=== PATIENT | female | born 1975 | race Caucasian/White ===

== ENCOUNTER → 2016-11-25 | Outpatient (CLI) | payer BC ==
--- NOTE | 2016-11-25 16:20 | US ---
EXAMINATION TYPE: US pelvis complete transvag DATE OF EXAM: 11/25/2016 3:18 PM COMPARISON: NONE CLINICAL HISTORY: N94.6 Dysmenorrhea. HISTORY OF BREAST CANCER TECHNIQUE: Transvaginal (TV) and Transabdominal (TA) pelvic ultrasound Date of LMP: 11/25/2016 EXAM MEASUREMENTS: Uterus: 9.9 X 5.8 X 6.6 cm Endometrial Stripe: 0.3 cm Right Ovary: 3.5 X 1.4 X 1.4 cm Left Ovary: 2.6 X 1.6 X 1.7 cm TECHNOLOGIST IMPRESSION: 1.6 x 1.2 x 0.9 cm anterior fibroid , small nabothian cyst 0.3 x 0.4 x 0.2 cm 1. Uterus: 1.6 x 1.2 x 0.9 cm anterior fibroid , small nabothian cyst 0.3 x 0.4 x 0.2 cm 2. Endometrium: wnl 3. Right Ovary: small follicular cyst 4. Left Ovary: small follicular cyst 5. Bilateral Adnexa: wnl 6. Posterior cul-de-sac: wnl Tiny nabothian cysts are seen in the cervix on transvaginal evaluation. There is heterogeneous isoech oic to slightly hypoechoic lesion anteriorly in the uterus could reflect small fibroid. Endometrium d oes not appear suspiciously thickened on images saved. No free fluid is seen in pelvis. Both ovaries are grossly unremarkable. IMPRESSION: Possible small 1.6 cm intrauterine fibroid otherwise unremarkable study.
== END | disposition home or self-care (01) ==
LOC: RADUSWWP 14:54
PROVIDERS: ATTEND Obstetrics & Gynecology
DX: N94.6 Dysmenorrhea, unspecified (principal)
CPT/HCPCS: 76830; 76856

== ENCOUNTER → 2017-12-16 | Outpatient (CLI) | payer BC ==
--- NOTE | 2017-12-19 13:22 | MM ---
Reason for exam: screening (asymptomatic). Last mammogram was performed 1 year and 6 months ago. History: Patient has history of breast cancer at age 35. Family history of breast cancer in maternal grandmother at age 50. Lumpectomy of the right breast, 2010. Reconstructions of both breasts. Reduction of the left breast. Radiation therapy. Physical Findings: A clinical breast exam by your physician is recommended on an annual basis and results should be correlated with mammographic findings. MG Screening Mammo w CAD Bilateral CC, MLO, and XCCL view(s) were taken. Prior study comparison: June 24, 2016, mammogram, performed at [facility]. June 19, 2015, mammogram, performed at [facility]. The breast tissue is heterogeneously dense. This may lower the sensitivity of mammography. There is a new 1.3cm focal asymmetry in the left upper outer quadrant at posterior depth. Post therapy changes on the right breast. ASSESSMENT: Incomplete: need additional imaging evaluation, BI-RAD 0 RECOMMENDATION: Special view mammogram of the left breast. If lesion persists on supplemental views, image directed ultrasound is recommended. [facility] will attempt to contact patient to return for supplemental views and ultrasound if indicated.
== END | disposition home or self-care (01) ==
LOC: RADMAMWWP 16:52
PROVIDERS: ATTEND Obstetrics & Gynecology
DX: Z12.31 Encounter for screening mammogram for malignant neoplasm of breast (principal); Z85.3 Personal history of malignant neoplasm of breast
CPT/HCPCS: 77067

== ENCOUNTER → 2017-12-27 | Outpatient (CLI) | payer BC ==
--- NOTE | 2017-12-28 08:13 | USB ---
Reason for exam: additional evaluation requested from abnormal screening. History: Patient has history of breast cancer at age 35. Family history of breast cancer in maternal grandmother at age 50. Lumpectomy of the right breast, 2010. Reconstructions of both breasts. Reduction of the left breast. Radiation therapy. Physical Findings: Nurse did not find any significant physical abnormalities on exam. US Breast Workup Limited LT Left breast ultrasound demonstrates a 0.4 x 0.3 x 0.2cm oval, cystic lesion at 12 o'clock. These results were verbally communicated with the patient and result sheet given to the patient on 12/27/17. ASSESSMENT: Benign, BI-RAD 2 RECOMMENDATION: Return to routine screening mammogram schedule for both breasts.
== END | disposition home or self-care (01) ==
LOC: RADMAMWWP 15:00
PROVIDERS: ATTEND Obstetrics & Gynecology
DX: R92.8 Other abnormal and inconclusive findings on diagnostic imaging of breast (principal)

== ENCOUNTER → 2018-10-16 | Outpatient (CLI) | payer BC ==
--- NOTE | 2018-10-17 08:19 | US ---
EXAMINATION TYPE: US pelvic complete DATE OF EXAM: 10/16/2018 COMPARISON: US 11/25/2016 CLINICAL HISTORY: R10.2 Pelvic pain. Right side pelvic pain during cycle TECHNIQUE: . Transabdominal sonographic images of the pelvis were acquired. Date of LMP: 10/12/2018 EXAM MEASUREMENTS: Uterus: 11.5 x 4.9 x 5.4 cm Endometrial Stripe: 0.6 cm Right Ovary: 2.4 x 1.7 x 1.6 cm Left Ovary: 2.5 x 2.6 x 1.6 cm 1. Uterus: Anteverted Hypoechoic area visualized measuring 1.6 x 1.1 x 1.3 cm, probable fibroid. 2. Endometrium: wnl 3. Right Ovary: wnl 4. Left Ovary: wnl 5. Bilateral Adnexa: wnl 6. Posterior cul-de-sac: wnl Stable anterior slightly hypoechoic round to oval lesion felt to reflect small subserosal fibroid. IMPRESSION: Transabdominal ultrasound shows stable small anterior 1.3 cm subserosal fibroid. No new s uspicious finding seen to account for patient's symptoms of right-sided pain.
== END | disposition home or self-care (01) ==
LOC: RADUSWWP 16:16
PROVIDERS: ATTEND Obstetrics & Gynecology
DX: D25.2 Subserosal leiomyoma of uterus (principal)
CPT/HCPCS: 76856

== ENCOUNTER → 2019-01-12 | Outpatient (CLI) | payer BC ==
--- NOTE | 2019-01-15 12:03 | MM ---
Reason for exam: screening (asymptomatic). Last mammogram was performed 1 year and 1 month ago. History: Patient has history of breast cancer at age 35. Family history of breast cancer in maternal grandmother at age 50. Lumpectomy of the right breast, 2010. Reconstructions of both breasts. Reduction of the left breast. Radiation therapy. Physical Findings: A clinical breast exam by your physician is recommended on an annual basis and results should be correlated with mammographic findings. MG Screening Mammo w CAD Bilateral CC and MLO view(s) were taken. XCCL view(s) were taken of the right breast. Prior study comparison: December 16, 2017, bilateral MG screening mammo w CAD. June 24, 2016, mammogram, performed at [facility]. The breast tissue is heterogeneously dense. This may lower the sensitivity of mammography. Finding #1: There are clips and architectural distortion in the outer quadrant, posterior position of the right breast consistent with known lumpectomy changes. Finding #2: There are typically benign round calcifications in the right breast. ASSESSMENT: Benign, BI-RAD 2 RECOMMENDATION: Routine screening mammogram of both breasts in 1 year.
== END | disposition home or self-care (01) ==
LOC: RADMAMWWP 08:03
PROVIDERS: ATTEND Obstetrics & Gynecology
DX: Z12.31 Encounter for screening mammogram for malignant neoplasm of breast (principal); Z85.3 Personal history of malignant neoplasm of breast
CPT/HCPCS: 77067

== ENCOUNTER → 2020-05-27 | Outpatient (CLI) | payer BC ==
--- NOTE | 2020-05-28 13:37 | MM ---
Reason for exam: screening (asymptomatic). Last mammogram was performed 1 year and 4 months ago. History: Patient has history of breast cancer at age 35. Family history of breast cancer in maternal grandmother at age 50. Lumpectomy of the right breast, 2010. Reconstructions of both breasts. Reduction of the left breast. Radiation therapy. Physical Findings: A clinical breast exam by your physician is recommended on an annual basis and results should be correlated with mammographic findings. MG 3D Screening Mammo W/Cad Bilateral CC and MLO view(s) were taken. Prior study comparison: January 12, 2019, bilateral MG screening mammo w CAD. December 16, 2017, bilateral MG screening mammo w CAD. The breast tissue is heterogeneously dense. This may lower the sensitivity of mammography. Post biopsy changes right upper outer quadrant. No significant changes when compared with prior studies. ASSESSMENT: Benign, BI-RAD 2 RECOMMENDATION: Routine screening mammogram of both breasts in 1 year.
== END | disposition home or self-care (01) ==
LOC: RADMAMWWP 16:30
PROVIDERS: ATTEND Obstetrics & Gynecology
DX: Z12.31 Encounter for screening mammogram for malignant neoplasm of breast (principal)
CPT/HCPCS: 77063; 77067

== ENCOUNTER → 2021-09-10 | Outpatient (CLI) | payer BC ==
--- NOTE | 2021-09-14 10:37 | MM ---
Reason for exam: screening (asymptomatic). Last mammogram was performed 1 year and 3 months ago. History: Patient has history of breast cancer at age 35. Family history of breast cancer in maternal grandmother at age 50. Lumpectomy of the right breast, 2010. Reconstructions of both breasts. Reduction of the left breast. Radiation therapy. Physical Findings: A clinical breast exam by your physician is recommended on an annual basis and results should be correlated with mammographic findings. MG 3D Screening Mammo W/Cad Bilateral CC and MLO view(s) were taken. Prior study comparison: May 27, 2020, bilateral MG 3d screening mammo w/cad. January 12, 2019, bilateral MG screening mammo w CAD. The breast tissue is heterogeneously dense. This may lower the sensitivity of mammography. Finding: There are coarse heterogeneous, linear arranged calcifications in the upper outer quadrant, posterior position of the right breast. Post surgical changes right upper outer quadrant. ASSESSMENT: Incomplete: need additional imaging evaluation, BI-RAD 0 RECOMMENDATION: Special view mammogram of the right breast. [facility] will attempt to contact patient to return for supplemental views.
== END | disposition home or self-care (01) ==
LOC: RADMAMWWP 14:08
PROVIDERS: ATTEND Obstetrics & Gynecology
DX: Z12.31 Encounter for screening mammogram for malignant neoplasm of breast (principal); Z80.3 Family history of malignant neoplasm of breast
CPT/HCPCS: 77063; 77067

== ENCOUNTER → 2021-09-16 | Outpatient (CLI) | payer BC ==
--- NOTE | 2021-09-16 11:05 | MM ---
Reason for exam: additional evaluation requested from abnormal screening. Last mammogram was performed less than 1 month ago. History: Patient has history of breast cancer at age 35. Family history of breast cancer in maternal grandmother at age 50. Lumpectomy of the right breast, 2010. Reconstructions of both breasts. Reduction of the left breast. Radiation therapy. Physical Findings: Nurse did not find any significant physical abnormalities on exam. MG 3D Work Up W/Cad RT CC with magnification, LM with magnification, and LM view(s) were taken of the right breast. Prior study comparison: September 10, 2021, bilateral MG 3d screening mammo w/cad. May 27, 2020, bilateral MG 3d screening mammo w/cad. There are indeterminate calcifications in the right breast. Post biopsy changes. These results were verbally communicated with the patient and result sheet given to the patient on 09/16/21. ASSESSMENT: Suspicious, BI-RAD 4 RECOMMENDATION: Stereotactic core biopsy of the right breast. Called Dr. Mcwilliams's office with mammographic findings and has scheduled an appointment for the patient for 11/04/21 at 4:[address] Gómez. Biopsy scheduled for 10/19/21 at 8 o'clock. PRELIMINARY REPORT CALLED AND FAXED TO DR. GÓMEZ ON 09/16/21.
== END | disposition home or self-care (01) ==
LOC: RADMAMWWP 08:32
PROVIDERS: ATTEND Obstetrics & Gynecology
DX: R92.1 Mammographic calcification found on diagnostic imaging of breast (principal); Z80.3 Family history of malignant neoplasm of breast; Z78.0 Asymptomatic menopausal state
CPT/HCPCS: 77061; 77065

== ENCOUNTER → 2021-10-19 | Day surgery (SDC) | payer BC ==
[2021-10-19 07:22] VITALS: RESP 16; TEMP 98.6
[2021-10-19 09:13] VITALS: BP 112/77; PULSE 75
--- NOTE | 2021-10-19 17:22 | MM ---
EXAMINATION TYPE: MG stereo VAD BX RT DATE OF EXAM: 10/19/2021 COMPARISON: 01/12/2019, 09/16/2021, 09/10/2021 CLINICAL HISTORY: Abnormal mammogram TECHNIQUE: Stereotactic guided core biopsy of right breast. FINDINGS: The procedure of stereotactic guided core biopsy was explained to the patient. Benefits, alternatives, and risks were discussed. An informed consent was then obtained. The shortness pathway for biopsy was chosen. Shortness pathway was lateral approach. The procedure was performed by radiology. Targeting was provided by radiology. A vacuum assisted biopsy gun was used to obtain 6 core samples. The patient tolerated the procedure well without any immediate complication. The patient was kept in the radiology department for short stay after the procedure and then discharged home in stable condition. Specimen: Targeted calcifications are identified in specimen mammogram. Post biopsy mammogram shows the clip to appear in satisfactory position relative to the targeted calcifications of concern on the preprocedure images. IMPRESSION: 1. Successful stereotactic core biopsy right breast calcifications. Recommendations: 1. Recommendations are pending pathology results. Pathology Results: Benign RIGHT BREAST, STEREOTACTIC NEEDLE CORE BIOPSY: Scar/fibrosis with calcifications and background fibrocystic changes. Recommendation Follow up mammogram of the right breast in 6 months. GUADALUPE
== END ==
LOC: RADMAMWWP 07:09
PROVIDERS: ATTEND Surgery
DX: R92.8 Other abnormal and inconclusive findings on diagnostic imaging of breast (principal); N60.31 Fibrosclerosis of right breast; R92.1 Mammographic calcification found on diagnostic imaging of breast; Z88.0 Allergy status to penicillin
CPT/HCPCS: 88305; 19081; J2001

== ENCOUNTER → 2022-09-08 | Outpatient (CLI) | payer OTHER ==
--- NOTE | 2022-09-08 09:12 | MM ---
Reason for Exam: Follow-up at short interval from prior study. Last screening mammogram was performed 12 month(s) ago. Patient History: Menarche at age 13. First Full-Term at age 28. Breast cancer, right, age 35. Previous chest radiation therapy at age 35. 2010, Lumpectomy on the Right side. Reduction on the Left side. 10/19/2021, Benign Core Biopsy on the right side. Radiation Therapy. Maternal grandmother had breast cancer, age 50. Last menstrual period: 08/27/2022 Prior Study Comparison: 12/17/2010 Bilateral Screening Mammogram, [facility]. 12/21/2010 Bilateral Diagnostic Mammogram, [facility]. 12/21/2010 Left Diagnostic Ultrasound, [facility]. 02/15/2011 Right Diagnostic Mammogram, [facility]. 06/19/2015 Screening Mammogram, [facility]. 06/24/2016 Screening Mammogram, [facility]. 12/16/2017 Bilateral Screening Mammogram, [facility]. 12/27/2017 Left Diagnostic Ultrasound, [facility]. 01/12/2019 Bilateral Screening Mammogram, [facility]. 05/27/2020 Bilateral Screening Mammogram, [facility]. 09/10/2021 Bilateral Screening Mammogram, [facility]. 09/16/2021 Right Diagnostic Mammogram, [facility]. Tissue Density: The breast tissue is heterogeneously dense. This may lower the sensitivity of mammography. Findings: Analyzed By CAD. Stable appearance of right breast postprocedural/treatment changes including right breast surgical clips and biopsy clip. No evidence of new suspicious mass dislocation or distortion in either breast. Overall Assessment: Benign, BI-RAD 2 Management: Screening Mammogram of both breasts in 1 year. A clinical breast exam by your physician is recommended on an annual basis and results should be correlated with mammographic findings. This exam should not preclude additional follow-up of suspicious palpable abnormalities. Results were given to the patient verbally at the time of exam. Electronically signed and approved by: Dale Ennis DO
== END | disposition home or self-care (01) ==
LOC: RADMAMWWP 08:15
PROVIDERS: ATTEND Surgery
DX: C50.911 Malignant neoplasm of unspecified site of right female breast (principal); R92.8 Other abnormal and inconclusive findings on diagnostic imaging of breast; Z80.3 Family history of malignant neoplasm of breast
CPT/HCPCS: 77062; 77066

== ENCOUNTER → 2023-10-17 | Outpatient (CLI) | payer OTHER ==
--- NOTE | 2023-10-18 10:12 | MM ---
Reason for Exam: Screening (asymptomatic). Last mammogram was performed 1 year(s) and 1 month(s) ago. Patient History: Menarche at age 13. First Full-Term at age 28. Premenopausal. Breast cancer, right, age 35. Previous chest radiation therapy at age 35. 2010, Lumpectomy on the Right side. Reduction on the Left side. 10/19/2021, Benign Core Biopsy on the right side. Radiation Therapy. Maternal grandmother had breast cancer, age 50. Last menstrual period: 10/02/2023 Prior Study Comparison: 09/10/2021 Bilateral Screening Mammogram, [facility]. 09/16/2021 Right Diagnostic Mammogram, [facility]. 09/08/2022 Bilateral MG 3D diag mammo w/cad FACUNDO, [facility]. Tissue Density: The breast tissue is heterogeneously dense. This may lower the sensitivity of mammography. Findings: Analyzed By CAD. Post treatment changes right breast with surgical clips. There is no suspicious group of microcalcifications or new suspicious mass. Overall Assessment: Benign, BI-RAD 2 Management: Screening Mammogram of both breasts in [address] [facility] will attempt to contact patient to return for supplemental views and ultrasound if indicated. Patient should continue monthly self-breast exams. A clinical breast exam by your physician is recommended on an annual basis. This exam should not preclude additional follow-up of suspicious palpable abnormalities. Note on Dora scores and lifetime risk: 1. A Dora score greater than 3% is considered moderate risk. If this is the case, consider specialist referral to assess eligibility for a risk reducing agent. 2. If overall lifetime risk for the development of breast cancer is 20% or higher, the patient may qualify for future screening with alternating mammogram and breast MRI. Electronically signed and approved by: Dale Ennis DO
== END | disposition home or self-care (01) ==
LOC: RADMAMWWP 15:46
PROVIDERS: ATTEND Obstetrics & Gynecology
DX: Z12.31 Encounter for screening mammogram for malignant neoplasm of breast (principal); Z80.3 Family history of malignant neoplasm of breast; Z85.3 Personal history of malignant neoplasm of breast
CPT/HCPCS: 77063; 77067

== ENCOUNTER 2023-11-24 09:25 | Emergency (ER) | payer OTHER ==
[2023-11-24 09:33] VITALS: TEMP 98.3
[2023-11-24] MEDS: LIDOCAINE 4% PATCH TOPICAL ONE (10:11)
[2023-11-24] MEDS: PANTOPRAZOLE 40 MG/10 ML VIAL IVP STA (10:11)
[2023-11-24] MEDS: SODIUM CHLORIDE 0.9% 1,000 ML IV STA (10:11)
[2023-11-24 10:26] LABS: Basophils # (A) 0.1 k/uL (0-0.2); Basophils % (A) 1 %; Eosinophils # (A) 0.1 k/uL (0-0.7); Eosinophils % (A) 2 %; HCT 40.1 % (34.0-46.0); HGB 13.4 gm/dL (11.4-16.0); Lymphocytes # (A) 1.5 k/uL (1.0-4.8); Lymphocytes % (A) 16 %; MCHC 33.4 g/dL (31.0-37.0); MCV 92.8 fL (80.0-100.0); Mean Platelet Volume 7.6; Monocytes # (A) 0.5 k/uL (0-1.0); Monocytes % (A) 6 %; Neutrophils # (A) 6.6 k/uL (1.3-7.7); Neutrophils % (A) 74 %; Platelet Count 328 k/uL (150-450); RBC 4.32 m/uL (3.80-5.40); RDW 13.3 % (11.5-15.5); WBC 8.9 k/uL (3.8-10.6)
[2023-11-24 10:34] LABS: Partial Thromboplastin Time 28.4 sec (22.0-30.0)
[2023-11-24 10:46] LABS: HCG,Qualitative Serum Not Detected
[2023-11-24 10:48] LABS: Appearance,Urine Cloudy (Clear); Bacteria,Urine Rare /hpf; Bilirubin,Urine Negative (Negative); Blood,Urine Large (Negative); Budding Yeast,Urine Moderate /hpf; Color,Urine Yellow; Glucose,Urine (UA) Negative (Negative); Ketones,Urine Negative (Negative); Leukocyte Esterase,Urine Large (Negative); Mucus,Urine Occasional /hpf; Nitrite,Urine Negative (Negative); PH, Urine 6.5 (5.0-8.0); Protein,Urine 1+ (Negative); RBC,Urine >182 /hpf (0-5); Squamous Epithelial Cell,Urine 1 /hpf (0-4); Urobilinogen,Urine <2.0 mg/dL (<2.0); WBC,Urine 172 /hpf (0-5)
[2023-11-24 11:03] LABS: ALT 18 U/L (4-34); AST 28 U/L (14-36); African American GFR (CKD) >90 (>60 ml/min/1.73 sqM); Albumin 4.1 g/dL (3.5-5.0); Alkaline Phosphatase 31 U/L (38-126); Amylase 81 U/L (30-110); Anion Gap 10 mmol/L; Blood Urea Nitrogen 17 mg/dL (7-17); Calcium 9.2 mg/dL (8.4-10.2); Carbon Dioxide 23 mmol/L (22-30); Chloride 107 mmol/L (98-107); Glucose 70 mg/dL (74-99); Lipase 102 U/L (23-300); Non-African American GFR(CKD) 79 (>60 ml/min/1.73 sqM); Potassium 4.2 mmol/L (3.5-5.1); Sodium 140 mmol/L (137-145); Total Bilirubin 0.5 mg/dL (0.2-1.3); Total Protein 6.9 g/dL (6.3-8.2)
--- NOTE | 2023-11-24 11:13 | XR ---
EXAMINATION TYPE: XR chest 1V portable DATE OF EXAM: 11/24/2023 COMPARISON: NONE HISTORY: Pain TECHNIQUE: Single frontal view of the chest is obtained. FINDINGS: There is no focal air space opacity, pleural effusion, or pneumothorax seen. The cardiac silhouette size is within normal limits. The osseous structures are intact. IMPRESSION: No acute process.
--- NOTE | 2023-11-24 11:40 | CT ---
CTA CHEST EXAMINATION TYPE: CT angio thor/abd pel aorta DATE OF EXAM: 11/24/2023 INDICATION: recent DVT, low back pain, urinary frequency CT DLP: 1929.1 mGycm, Automated exposure control for dose reduction was used. CONTRAST: Patient injected with 100 mL of Isovue 370. COMPARISON: None TECHNIQUE: CT of the chest and abdomen is performed on a spiral scan at 2 mm thick sections. Study i s performed with intravenous contrast timed for evaluation for thoracic and abdominal aorta.. This w ill limit additional portions of the evaluation. 3-D MIP images reconstructed by the technologist kem estrada reviewed on the computer in the coronal and sagittal planes. FINDINGS: No persistent filling defects are evident to suggest an acute pulmonary embolism. There is a three-vessel arch. No obvious filling defects to suggest acute pulmonary embolism is evide nt. The ascending thoracic aorta aortic arch and descending thoracic aorta appear unremarkable withou t dissection or dilatation. Celiac axis and superior mesenteric arteries are normal. The renal artery origins appear normal. Aortic bifurcation is unremarkable. Internal and external iliac vessels are p atent. Common femoral arteries are patent. Profunda femoris and superficial femoral arteries are em nt. No mediastinal or hilar adenopathy enlarged by CT criteria is evident. The ascending aorta diameter at the level of the main pulmonary artery is 3.4 cm. The main pulmonary artery diameter at the bifurcation is 3.0 cm. Lung windows are clear. CT ABDOMEN: Liver: Normal Spleen: Normal Pancreas: Normal Adrenal glands: The adrenal glands are normal. Gallbladder: Surgically absent Kidneys: No masses are evident. No hydronephrosis is present. No cysts are present. No renal stone s are on the precontrast images. Aorta: Normal. No dissection is evident. Inferior vena cava: Normal. CT PELVIS: Loops of bowel within the abdomen and pelvis are normal. The study is without oral contrast limit ing bowel evaluation. Appendix: Normal as visualized. Urinary bladder: Some mild diffuse urinary bladder wall thickening may be present. Consider cystitis within the differential Genitourinary structures: Uterus is bulky. Adnexa appear within normal limits. Osseous structures: No suspicious lytic or sclerotic lesions. IMPRESSION: 1. No suspicious abnormality account for back pain or flank pain. 2. No dissection or aneurysm of the thoracic or abdominal aorta. 3. No suspicious renal or ureteral stones 4. Mild diffuse wall thickening through the urinary bladder. Consider cystitis. 5. Bulky uterus. This could be further evaluated with ultrasound.
--- NOTE | 2023-11-24 11:52 | ED ---
General Adult HPI - General Chief complaint: Back Pain/Injury Stated complaint: Back pain, DVT Time Seen by Provider: 11/24/23 09:33 Source: patient, RN notes reviewed, old records reviewed Mode of arrival: ambulatory Limitations: no limitations - History of Present Illness Initial comments: Patient is a 48-year-old female presents emergency department complaining of leg pain, back pain. States that has been ongoing for over a week. Has a history of back strains. However patient is concerned because she was also recently started on a blood thinning medication Xarelto for DVT in the lower extremity. Has no acute complaints at this time in terms of the leg however is having some right flank pain as well as had some pain between her shoulder blades in the back. The shoulder blade pain has resolved for a few days however patient has been having the flank pain as well. Presents over concern for her complaints. Only other acute complaint is increased urinary frequency. Presents for further evaluation. - Related Data Home Medications Medication Instructions Recorded Confirmed Ascorbic Acid [Vitamin C chew] 500 mg PO DAILY 10/09/21 10/19/21 Cholecalciferol (Vitamin D3) 12.5 mcg PO DAILY 10/09/21 10/19/21 [Vitamin D3 (500 Iu/5 ML)] Levothyroxine Sodium [Synthroid] 50 mcg PO DAILY 10/09/21 10/19/21 Loratadine [Claritin] 10 mg PO DAILY 10/09/21 10/19/21 Mv,Calcium,Min/Iron/Folic/Vitk 1 each PO DAILY 10/09/21 10/19/21 [One-A-Day Women's Complete Tab] Mv-Min/Vit C/Glut/Lysine/Hb124 1 tablet PO DAILY 10/09/21 10/19/21 [Airborne Effervescent Tablet] Topiramate [Topamax] 100 mg PO DAILY 10/09/21 10/19/21 Zinc Gluconate [Zinc] 50 mg PO DAILY 10/09/21 10/19/21 Previous Rx's Medication Instructions Recorded Sulfamethox-Tmp 800-160Mg [Bactrim 1 tab PO Q12HR 7 Days #14 tab 11/24/23 DS 800-160 mg] Allergies Allergy/AdvReac Type Severity Reaction Status Date / Time Penicillins Allergy Unknown Verified 11/24/23 09:31 Review of Systems ROS Statement: Those systems with pertinent positive or pertinent negative responses have been documented in the HPI. Review of Systems: CONST: Denies fever EYES: Denies blurry vision ENT: Denies nasal congestion C/V: Denies Chest pain RESP: Denies shortness of breath GI: Denies abdominal pain : Denies dysuria SKIN: Denies rash. MSK: Endorses back pain, flank pain NEURO: Denies headache ROS Other: All systems not noted in ROS Statement are negative. Past Medical History Past Medical History: Cancer, Thyroid Disorder Additional Past Medical History / Comment(s): Right breast cancer 2010. DVT History of Any Multi-Drug Resistant Organisms: None Reported Past Surgical History: Breast Surgery, Cholecystectomy Additional Past Surgical History / Comment(s): Right breasst lumpectomy with reconstruction/ radiation 2010 Past Anesthesia/Blood Transfusion Reactions: Previous Problems w/ Anesthesia Additional Past Anesthesia/Blood Transfusion Reaction / Comment(s): pt states "hyperventilated" after cholecystectomy Past Psychological History: No Psychological Hx Reported Smoking Status: Former smoker Past Alcohol Use History: Occasional Past Drug Use History: None Reported General Exam - General Exam Comments Initial Comments: General: Appears in no acute distress. HEAD: Normal with no signs of head trauma. EYES: PERRLA, EOMI, conjunctiva normal, no discharge. ENT: Hearing grossly intact, normal oropharynx. RESPIRATORY: Clear breath sounds bilaterally. No wheezes, rales, or rhonchi. C/V: Regular rate and rhythm. S1 and S2 auscultated, no edema, peripheral pulses 2+ and intact throughout ABD: Abd is soft, nontender, nondistended EXT: Tenderness to palpation in the right lower back with radiation around the flank and somewhat in the suprapubic region. No midline C, T, L-spine tenderness to palpation. SKIN: No rashes or lesions observed on exposed skin. NEURO: Alert and oriented x 4. Cranial nerves II-XII intact. No focal sensory or strength deficits. Limitations: no limitations Course Vital Signs 11/24/23 11/24/23 11/24/23 09:29 10:16 11:24 Temperature 98.3 F Pulse Rate 111 H 100 77 Respiratory 18 20 16 Rate Blood Pressure 124/83 110/60 114/80 O2 Sat by Pulse 100 98 99 Oximetry 11/24/23 12:07 Temperature Pulse Rate 68 Respiratory 16 Rate Blood Pressure 130/80 O2 Sat by Pulse 98 Oximetry Medical Decision Making - Medical Decision Making Was pt. sent in by a medical professional or institution (NAINA Liu, CODING AND REIMBURSEMENT SPECIALIST, urgent care, hospital, or longterm...) When possible be specific @ -No Did you speak to anyone other than the patient for history (EMS, parent, family, police, friend...)? What history was obtained from this source @ -No Did you review nursing and triage notes (agree or disagree)? Why? @ -I reviewed and agree with nursing and triage notes Were old charts reviewed (outside hosp., previous admission, EMS record, old EKG, old radiological studies, urgent care reports/EKG's, longterm records)? Report findings @ -Old charts reviewed Differential Diagnosis (chest pain, altered mental status, abdominal pain women, abdominal pain men, vaginal bleeding, weakness, fever, dyspnea, syncope, headache, dizziness, GI bleed, back pain, seizure, CVA, palpatations, mental health, musculoskeletal)? @ -Differential Abdominal Pain Women: Appendicitis, Cholecystitis, diverticulosis, ischemic bowel, pancreatitis, h epatitis, UTI, gastroenteritis, AAA, incarcerated hernia, bowel obstruction, constipation, inflammatory bowel, hepatitis, peptic ulcer disease, splenic infarction, perforated viscus, vulvitis, ovarian torsion, PID, kidney stone, placenta abruption, this is not meant to be an all-inclusive list EKG interpreted by me (3pts min.). @ -As above X-rays interpreted by me (1pt min.). @ -Chest x-ray reveals no obvious acute cardiopulmonary process. CT interpreted by me (1pt min.). @ -CT angiogram of the chest abdomen pelvis reveals no evidence of aortic injury. Patient does have findings consistent with cystitis. No other obvious findings at this time. U/S interpreted by me (1pt. min.). @ -None done What testing was considered but not performed or refused? (CT, X-rays, U/S, labs)? Why? @ -None What meds were considered but not given or refused? Why? @ -None Did you discuss the management of the patient with other professionals (professionals i.e. NAINA Liu, CODING AND REIMBURSEMENT SPECIALIST, lab, RT, psych nurse, perinatal social worker, [employer], teacher, inshore undersea warfare officer, hospice case manager)? Give summary @ -No Was smoking cessation discussed for >3mins.? @ -No Was critical care preformed (if so, how long)? @ -No Were there social determinants of health that impacted care today? How? (Homelessness, low income, unemployed, alcoholism, drug addiction, transportation, low edu. Level, literacy, decrease access to med. care, usp, rehab)? @ -No Was there de-escalation of care discussed even if they declined (Discuss DNR or withdrawal of care, Hospice)? DNR status @ -No What co-morbidities impacted this encounter? (DM, HTN, Smoking, COPD, CAD, Cancer, CVA, ARF, Chemo, Hep., AIDS, mental health diagnosis, sleep apnea, morbi d obesity)? @ -None Was patient admitted / discharged? Hospital course, mention meds given and rout e, prescriptions, significant lab abnormalities, going to OR and other pertinent info. @ -Based on the patient's presentation and physical exam, presents with right flank and lower abdominal pain as well as intermittent back pain over the last 1 to 2 weeks since she was started on her blood thinning medication. Obtain abdominal workup as well as CT imaging to evaluate her aorta. She was in agre ement this plan. Vital signs are within acceptable limits. She will be given a lidocaine patch for analgesia as well as IV Protonix and fluids. She was in agreement this plan. CT imaging remarkable for cystitis but no evidence of aortic injury. Labs are within acceptable limits except for a UTI. I updated the patient. She expressed understanding. She will be placed on Bactrim. Patient discharged home at this time. I will provide the patient with a prescription for Bactrim. I instructed the patient to follow up with their PCP in the next 1-3 days.. I explained that the patient should return to the emergency department if they experience any worsening symptoms. Strict return precautions were discussed with the patient. The patient expressed understanding of these instructions. I answered all questions that the patient had. The patient was discharged home in good condition with their prescriptions and follow up information. Undiagnosed new problem with uncertain prognosis? @ -No Drug Therapy requiring intensive monitoring for toxicity (Heparin, Nitro, Insulin, Cardizem)? @ -No Were any procedures done? @ -No Diagnosis/symptom? @ -UTI Acute, or Chronic, or Acute on Chronic? @ -Acute Uncomplicated (without systemic symptoms) or Complicated (systemic symptoms)? @ -Complicated Side effects of treatment? @ -No Exacerbation, Progression, or Severe Exacerbation? @ -No Poses a threat to life or bodily function? How? (Chest pain, [place], [place], pneumonia, PE, COPD, DKA, ARF, appy, cholecystitis, CVA, Diverticulitis, Homicidal, Suicidal, threat to staff... and all critical care pts) @ -No - Lab Data Result diagrams: 11/24/23 09:56 11/24/23 09:56 Lab Results 11/24/23 11/24/23 11/24/23 Range/Units 09:56 09:56 09:56 WBC 8.9 (3.8-10.6) k/uL RBC 4.32 (3.80-5.40) m/uL Hgb 13.4 (11.4-16.0) gm/dL Hct 40.1 (34.0-46.0) % MCV 92.8 (80.0-100.0) fL MCH 31.0 (25.0-35.0) pg MCHC 33.4 (31.0-37.0) g/dL RDW 13.3 (11.5-15.5) % Plt Count 328 (150-450) k/uL MPV 7.6 Neutrophils % 74 % Lymphocytes % 16 % Monocytes % 6 % Eosinophils % 2 % Basophils % 1 % Neutrophils # 6.6 (1.3-7.7) k/uL Lymphocytes # 1.5 (1.0-4.8) k/uL Monocytes # 0.5 (0-1.0) k/uL Eosinophils # 0.1 (0-0.7) k/uL Basophils # 0.1 (0-0.2) k/uL PT 11.0 (10.0-12.5) sec INR 1.0 (<1.2) APTT 28.4 (22.0-30.0) sec Sodium (137-145) mmol/L Potassium (3.5-5.1) mmol/L Chloride (98-107) mmol/L Carbon Dioxide (22-30) mmol/L Anion Gap mmol/L BUN (7-17) mg/dL Creatinine (0.52-1.04) mg/dL Est GFR (CKD-EPI)AfAm (>60 ml/min/1.73 sqM) Est GFR (CKD-EPI)NonAf (>60 ml/min/1.73 sqM) Glucose (74-99) mg/dL Plasma Lactic Acid Edis (0.7-2.0) mmol/L Calcium (8.4-10.2) mg/dL Total Bilirubin (0.2-1.3) mg/dL AST (14-36) U/L ALT (4-34) U/L Alkaline Phosphatase (38-126) U/L Total Protein (6.3-8.2) g/dL Albumin (3.5-5.0) g/dL Amylase (30-110) U/L Lipase (23-300) U/L HCG, Qual Urine Color Yellow Urine Appearance Cloudy H (Clear) Urine pH 6.5 (5.0-8.0) Ur Specific [place] 1.020 (1.001-1.035) Urine Protein 1+ H (Negative) Urine Glucose (UA) Negative (Negative) Urine Ketones Negative (Negative) Urine Blood Large H (Negative) Urine Nitrite Negative (Negative) Urine Bilirubin Negative (Negative) Urine Urobilinogen <2.0 (<2.0) mg/dL Ur Leukocyte Esterase Large H (Negative) Urine RBC >182 H (0-5) /hpf Urine WBC 172 H (0-5) /hpf Urine WBC Clumps Few H (None) /hpf Ur Squamous Epith Cells 1 (0-4) /hpf Urine Bacteria Rare H (None) /hpf Urine Mucus Occasional H (None) /hpf Urine Yeast (Budding) Moderate H (None) /hpf 11/24/23 11/24/23 Range/Units 09:56 09:56 WBC (3.8-10.6) k/uL RBC (3.80-5.40) m/uL Hgb (11.4-16.0) gm/dL Hct (34.0-46.0) % MCV (80.0-100.0) fL MCH (25.0-35.0) pg MCHC (31.0-37.0) g/dL RDW (11.5-15.5) % Plt Count (150-450) k/uL MPV Neutrophils % % Lymphocytes % % Monocytes % % Eosinophils % % Basophils % % Neutrophils # (1.3-7.7) k/uL Lymphocytes # (1.0-4.8) k/uL Monocytes # (0-1.0) k/uL Eosinophils # (0-0.7) k/uL Basophils # (0-0.2) k/uL PT (10.0-12.5) sec INR (<1.2) APTT (22.0-30.0) sec Sodium 140 (137-145) mmol/L Potassium 4.2 (3.5-5.1) mmol/L Chloride 107 (98-107) mmol/L Carbon Dioxide 23 (22-30) mmol/L Anion Gap 10 mmol/L BUN 17 (7-17) mg/dL Creatinine 0.87 (0.52-1.04) mg/dL Est GFR (CKD-EPI)AfAm >90 (>60 ml/min/1.73 sqM) Est GFR (CKD-EPI)NonAf 79 (>60 ml/min/1.73 sqM) Glucose 70 L (74-99) mg/dL Plasma Lactic Acid Edis 1.2 (0.7-2.0) mmol/L Calcium 9.2 (8.4-10.2) mg/dL Total Bilirubin 0.5 (0.2-1.3) mg/dL AST 28 (14-36) U/L ALT 18 (4-34) U/L Alkaline Phosphatase 31 L (38-126) U/L Total Protein 6.9 (6.3-8.2) g/dL Albumin 4.1 (3.5-5.0) g/dL Amylase 81 (30-110) U/L Lipase 102 (23-300) U/L HCG, Qual Not Detected Urine Color Urine Appearance (Clear) Urine pH (5.0-8.0) Ur Specific [place] (1.001-1.035) Urine Protein (Negative) Urine Glucose (UA) (Negative) Urine Ketones (Negative) Urine Blood (Negative) Urine Nitrite (Negative) Urine Bilirubin (Negative) Urine Urobilinogen (<2.0) mg/dL Ur Leukocyte Esterase (Negative) Urine RBC (0-5) /hpf Urine WBC (0-5) /hpf Urine WBC Clumps (None) /hpf Ur Squamous Epith Cells (0-4) /hpf Urine Bacteria (None) /hpf Urine Mucus (None) /hpf Urine Yeast (Budding) (None) /hpf - EKG Data -: EKG Interpreted by Me EKG Comments: 12-lead Electrocardiogram Interpretation Note EKG was reviewed and interpreted by myself. 12-lead ECG performed at 1009 is interpreted by me as revealing normal sinus rhythm at a rate of 73 beats per minute. Sisters is normal. VT interval is 140 ms, QRS duration is 93 ms, QTc is 388 ms.. There were no ST or T wave abnormalities to suggest myocardial isch emia or injury. R wave progression across the precordium was satisfactory. By my interpretation this EKG is non-diagnostic for acute ischemia. Disposition Clinical Impression: UTI (urinary tract infection) Disposition: HOME SELF-CARE Condition: Good Instructions (If sedation given, give patient instructions): Urinary Tract Infection in Women (ED) Prescriptions: Sulfamethox-Tmp 800-160Mg [Bactrim DS 800-160 mg] 1 tab PO Q12HR 7 Days #14 tab Is patient prescribed a controlled substance at d/c from ED?: No Referrals: Lola Pham MD [Primary Care Provider] - 1-2 days Time of Disposition: 11:48
[2023-11-24] MEDS: SULFAMETHOX-TMP 800-160MG 1 EACH TAB PO STA (12:01)
[2023-11-24 12:11] VITALS: BP 130/80; PULSE 68; RESP 16
== END 2023-11-24 12:11 | disposition home or self-care (01) ==
LOC: EC 09:25
DX: N39.0 Urinary tract infection, site not specified (principal); E07.9 Disorder of thyroid, unspecified; Z87.891 Personal history of nicotine dependence; Z79.890 Hormone replacement therapy; Z88.0 Allergy status to penicillin
CPT/HCPCS: 99285; 96374; 96361 ×2; 36415; 93005; 80053; 82150; 83605; 83690; 85025; 85610; 85730; 81001; 84703; 87086; 71045; 71275; 74174; C9113; Q9967

== ENCOUNTER → 2024-01-13 | Outpatient (CLI) | payer OTHER ==
--- NOTE | 2024-01-13 16:44 | XR ---
EXAMINATION TYPE: XR Hip Complete LT DATE OF EXAM: 01/13/2024 4:32 PM CLINICAL INDICATION:Female, 48 years old with history of I80.10 C50.919 E03.9; [facility] COMPARISON: None. TECHNIQUE: XR Hip Complete LT; hip was examined in the frontal and lateral projections and a AP pelvi s. FINDINGS: No evidence for acute process, joint dislocation or significant soft tissue swelling. Osteo phyte formation of the superior acetabulum of the hip. IMPRESSION: 1. No evidence for acute process. 2. Mild hip osteoarthrosis.
== END | disposition home or self-care (01) ==
LOC: RADXRMAIN 16:17
PROVIDERS: ATTEND Internal Medicine
DX: M16.12 Unilateral primary osteoarthritis, left hip (principal); I80.10 Phlebitis and thrombophlebitis of unspecified femoral vein; C50.919 Malignant neoplasm of unspecified site of unspecified female breast; E03.9 Hypothyroidism, unspecified
CPT/HCPCS: 73502

== ENCOUNTER → 2024-02-16 | Outpatient (CLI) | payer OTHER ==
--- NOTE | 2024-02-16 18:03 | US ---
EXAMINATION TYPE: US venous doppler duplex LE RT DATE OF EXAM: 02/16/2024 11:19 AM COMPARISON: NONE CLINICAL INDICATION: Female, 48 years old with history of C50.919 MALIGNANT NEOPLASM OF [facility] SITE OF UI80.10; Right leg DVT found at [facility] in November, patient on blood thinners sin ce then SIDE PERFORMED: Right TECHNIQUE: The lower extremity deep venous system is examined utilizing real time linear array sonog haim with graded compression, doppler sonography and color-flow sonography. VESSELS IMAGED: Common Femoral Vein Deep Femoral Vein Greater Saphenous Vein * Femoral Vein Popliteal Vein Small Saphenous Vein * Proximal Calf Veins (* superficial vessels) The deep venous system of the right lower extremity from the common femoral vein to the proximal shantelle f veins is patent and compressible with augmentable flow with normal waveforms. IMPRESSION: No evidence of right lower extremity DVT from the common femoral vein to the proximal calf veins
== END | disposition home or self-care (01) ==
LOC: RADUSWWP 10:49
PROVIDERS: ATTEND Internal Medicine
DX: C50.919 Malignant neoplasm of unspecified site of unspecified female breast (principal); I80.10 Phlebitis and thrombophlebitis of unspecified femoral vein; E03.9 Hypothyroidism, unspecified

== ENCOUNTER → 2024-02-16 | Outpatient (CLI) | payer OTHER ==
--- NOTE | 2024-02-16 14:19 | NM ---
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 Additionally, small field of view planar images of the lumbosa cral spine, pelvis and thorax. Images acquired 3 hours post injection. FINDINGS: No abnormal uptake is identified within the appendicular or axial skeleton to suggest metastatic dise ase. There is increased uptake within the bilateral shoulder, sternoclavicular, and sacroiliac joints con sistent with degenerative changes. No other photopenic areas or areas of increased activity are ident ified. Physiologic radiotracer activity is demonstrated in the kidneys and bladder. IMPRESSION: Nothing to suggest metastatic disease.
== END | disposition home or self-care (01) ==
LOC: RADNMMAIN 10:01
PROVIDERS: ATTEND Internal Medicine
DX: C50.919 Malignant neoplasm of unspecified site of unspecified female breast (principal)
CPT/HCPCS: 78306; A9503